=== PATIENT | female | born 1980 | race Two or more races ===

== ENCOUNTER 2024-12-18 13:15 | Emergency (ER) | payer OTHER ==
[~2024-12-18] VITALS: Ht 157.5 cm; Wt 72.6 kg
[2024-12-18] MEDS ORDERED: KETOROLAC TROMETHAMINE 60 MG VIAL IM ONE ×2 (13:56→14:00)
[2024-12-18] MEDS ORDERED: CEFTRIAXONE SODIUM 1,000 MG VIAL ONE (13:56)
[2024-12-18] MEDS ORDERED: CEFTRIAXONE SODIUM 1,000 MG VIAL IM ONE (14:00)
[2024-12-18 14:28] LABS: BASO % 0.8 % (0.1-1.2); EOS # 0.10 (0.04-0.54); EOS % 1.6 % (0.7-7.0); LYMPH # 1.54 (1.18-3.74); LYMPH % 24.1 % (19.3-53.1); MEAN PLATELET VOLUME 10.90 fl (9.4-12.4); MONO # 0.50 (0.24-0.82); MONO % 7.8 % (4.7-12.5); NEUT # 4.19 (1.56-6.13); NEUT % 65.5 % (34.0-71.1); RED CELL DISTRIBUTION WIDTH 14.3 % (11.6-14.4)
[2024-12-18 14:58] LABS: COVID-19 AG NEGATIVE (NEGATIVE)
[2024-12-18] MEDS ORDERED: AMOX-CLAV 875-1 EACH PO (15:05)
[2024-12-18] MEDS ORDERED: TUSNEL LIQUID178 ML PO (15:05)
[2024-12-18 15:18] VITALS: BP 119/79; O2SAT 100
== END 2024-12-18 15:19 | disposition home or self-care (01) ==
LOC: ER 13:15
PROVIDERS: General Practice
DX: J03.90 Acute tonsillitis, unspecified (principal); J06.9 Acute upper respiratory infection, unspecified; Z20.822 Contact with and (suspected) exposure to COVID-19

== ENCOUNTER 2024-12-23 12:21 | Emergency (ER) | payer OTHER ==
[~2024-12-23] VITALS: Ht 157.5 cm; Wt 74.8 kg
[~2024-12-23 12:21] MED LIST: AMOX-CLAV 875-1 EACH PO; TUSNEL LIQUID178 ML PO
[2024-12-23] MEDS ORDERED: FAMOTIDINE/PF 20 MG in 0.9 % SODIUM CHLORIDE 8 ML IV PUSH STA (13:31)
[2024-12-23] MEDS ORDERED: BUTALB/ACETAMINOPHEN/CAFFEINE 1 TAB TABLET PO ONE (13:45)
[2024-12-23 14:01] LABS: BASO % 0.7 % (0.1-1.2); EOS # 0.16 (0.04-0.54); EOS % 2.3 % (0.7-7.0); LYMPH # 1.95 (1.18-3.74); LYMPH % 28.2 % (19.3-53.1); MEAN PLATELET VOLUME 10.50 fl (9.4-12.4); MONO # 0.54 (0.24-0.82); MONO % 7.8 % (4.7-12.5); NEUT # 4.20 (1.56-6.13); NEUT % 60.7 % (34.0-71.1); RED CELL DISTRIBUTION WIDTH 13.9 % (11.6-14.4)
[2024-12-23 14:21] LABS: BUN CREA RATIO 18.0 (7.0-25.0); CREATININE SERUM 0.77 mg/dL (0.55-1.02); GFR 81.82; GLUCOSE FASTING 97.0 mg/dL (65-100); OSMOLALITY SERUM 284.0 MOSM/KG (275-295)
[2024-12-23 14:37] LABS: COVID-19 AG NEGATIVE (NEGATIVE)
[2024-12-23] MEDS ORDERED: MEDROLPACK PO (14:58)
== END 2024-12-23 15:22 | disposition home or self-care (01) ==
LOC: ER 12:21
PROVIDERS: General Practice
DX: R07.0 Pain in throat (principal); Z20.822 Contact with and (suspected) exposure to COVID-19